=== PATIENT | female | born 1970 | race Caucasian/White ===

== ENCOUNTER → 2020-08-15 | Outpatient (CLI) | payer BC ==
--- NOTE | 2020-08-15 16:23 | REP ---
INDICATION: PAIN. COMPARISON: None. TECHNIQUE: AP and frogleg views bilateral hips. FINDINGS: There is no acute fracture or dislocation. There is moderate joint space narrowing and subchondral sclerosis bilaterally. There is moderate spurring of the left acetabulum and femoral head. Moderately severe hypertrophic spurring is noted of the right acetabulum and femoral head. IMPRESSION: Moderately severe arthritic changes right hip, moderate arthritic changes left hip. <Electronically signed by James Carlos > 08/15/20 [id number]
== END ==
LOC: M WUC 15:10
PROVIDERS: ATTEND Nurse Practitioner
DX: M25.552 Pain in left hip (principal); M25.551 Pain in right hip

== ENCOUNTER → 2020-09-27 | Outpatient (CLI) | payer OTHER ==
[2020-09-27 16:00] LABS: BASO % 0.8 % (0.0-1.0); EOS # 0.1 10^3/uL (0.0-0.5); HEMOGLOBIN 12.8 g/dl (12.0-15.5); LYMPH % 40.5 % (24.0-44.0); MEAN CORPUSCULAR HEMOGLOBIN 30.1 pg (27.0-33.0); MEAN CORPUSCULAR HGB CONC 33.7 g/dl (32.0-36.5); MEAN CORPUSCULAR VOLUME 89.4 fl (80.0-96.0); MONO # 0.3 10^3/uL (0.0-0.8); MONO % 5.4 % (2.0-8.0); NEUTROPHILS # 2.6 10^3/uL (1.5-8.5); NEUTROPHILS % 52.1 % (36.0-66.0); PLATELET COUNT, AUTOMATED 196 10^3/uL (150-450); RED BLOOD COUNT 4.25 10^6/uL (4.00-5.40)
[2020-09-27 16:26] LABS: ERYTHROCYTE SEDIMENTATION RATE 25 mm/hr (0-30)
[2020-09-27 16:49] LABS: C REACTIVE PROTEIN QUANTITATIV 0.72 MG/DL (0.00-0.30); RHEUMATOID FACTOR QUANT < 10.0 IU/ML (<15.0)
== END ==
LOC: M WUC 13:23
PROVIDERS: ATTEND Orthopaedic Surgery
DX: M16.11 Unilateral primary osteoarthritis, right hip (principal)

== ENCOUNTER → 2020-10-02 | Outpatient (CLI) | payer OTHER ==
--- NOTE | 2020-10-02 11:48 | REP ---
INDICATION: R10.30 LOWER ABD PAIN,N92.6 IRREGULAR MENSTRUATION COMPARISON: None. TECHNIQUE: Transabdominal pelvic ultrasound followed by transvaginal examination for better evaluation of the endometrium and adnexa with color Doppler evaluation of the ovaries. FINDINGS: Bladder is unremarkable and measures 16.4 x 7.4 x 9.2 cm. Normal anteverted uterus measures 11.0 x 5.0 x 6.3 cm. The endometrial complex measures 15 mm thickness. No discrete uterine or endometrial abnormalities are appreciated. Bilateral ovaries are not visualized due to technical factors. No pelvic fluid or adnexal mass lesion. IMPRESSION: Normal appearing uterus. Ovaries not visualized. <Electronically signed by Jarod Mims > 10/02/20 [id number]
--- NOTE | 2020-10-02 11:50 | REP ---
INDICATION: Z12.31 SCREENING MAMMO. COMPARISON: None. Patient states her last mammogram was "about 8 years ago" and as per history the patient cannot remember where she had her prior mammogram in [place]. TECHNIQUE: Initial digital screening mammogram was carried out in the CC and MLO projections using both 2D and 3D modalities. By history, the patient has no complaints of a palpable breast abnormality or other significant breast complaints. FINDINGS: The breasts are symmetric in size and shape. There are no masses. There is no internal architectural distortion. There are no suspicious micro calcific clusters. There is no skin thickening or nipple retraction. Benign calcifications are seen in the right breast. In the upper outer quadrant of the right breast there is a nodular density with a notched lucent center. The Volpara volumetric breast density pattern is b. IMPRESSION: BIRADS/ACR category 2 negative mammogram. There is no evidence of malignant alteration of the breasts. There is benign right breast intramammary lymph node. This patient's Tyrer-Cuzick lifetime breast cancer risk assessment score is 19.4%. This mammogram was interpreted with the aid of an FDA-approved computer-aided detection system. The patient states she had a clinical breast exam in July 2020. The patient letter being requested is M1. RECOMMENDATION: Repeat screening mammography recommended 1 year (for women over 40). <Electronically signed by Tucker Chase > 10/02/20 [id number]
== END ==
LOC: M WHC 10:01
PROVIDERS: ATTEND Nurse Practitioner
DX: Z12.31 Encounter for screening mammogram for malignant neoplasm of breast (principal); R10.30 Lower abdominal pain, unspecified; N92.6 Irregular menstruation, unspecified

== ENCOUNTER → 2020-10-17 | Outpatient (CLI) | payer OTHER ==
--- NOTE | 2020-10-17 21:44 | REPVR ---
PROCEDURE INFORMATION: Exam: MR Lumbar Spine Without Contrast Exam date and time: 10/17/2020 8:42 PM Age: 50 years old Clinical indication: Low back pain; Patient HX: Lbp TECHNIQUE: Imaging protocol: Multiplanar magnetic resonance images of the lumbar spine without intravenous contrast. COMPARISON: PELVIS NON-OB COMPLETE US 10/02/2020 10:18 AM FINDINGS: Vertebrae: The lumbar vertebral bodies are normal in height, without abnormal subluxation or acute marrow edema. Spinal cord: The distal end of the conus medullaris ends at L1, normal in position. Multilevel findings: Degenerative disc disease is noted at multiple lumbar and lower thoracic levels, with a decrease in the T2 signal intensity of the discs as well as disc bulge/osteophyte complexes. A decrease in disc height is identified from T10-11 through T12-L1. Lower thoracic spine: Mild spinal canal stenosis at T10-11 with minimal spinal canal stenosis at T11-12. Suggested bilateral neural foraminal narrowing at T10-11, although this is incompletely evaluated. L1-L2: There is no significant narrowing of the thecal sac or neural foramina. Minimal disc bulging. L2-L3: Bilateral facet arthropathy. Minimal disc bulging. There is no significant narrowing of the thecal sac or neural foramina. L3-L4: Bilateral facet arthropathy. There is no significant narrowing of the thecal sac or neural foramina. L4-L5: Bilateral facet arthropathy with hypertrophy of the ligamentum flavum. A small broad-based disc bulge is visualized with flattening of the ventral border of the thecal sac without significant spinal canal stenosis. Mild left neural foraminal narrowing. No significant narrowing of the right neural foramen. L5-S1: Bilateral facet arthropathy. Mild disc bulging causing effacement of the anterior epidural fat, without significant spinal canal stenosis. There is slight narrowing of the left neural foramen. No significant narrowing of the right neural foramen. Soft tissues: No significant paraspinal swelling. IMPRESSION: 1. Degenerative changes are noted at multiple lumbar and lower thoracic levels, as described above. 2. Mild spinal canal stenosis at T10-11 with minimal spinal canal stenosis at T11-12. Suggested bilateral neural foraminal narrowing at T10-11. 3. No significant spinal canal stenosis at any lumbar level. 4. Neural foraminal narrowing at L4-L5 and L5-S1. Electronically signed by: Oscar Clemente On 10/17/2020 21:43:42 PM
== END ==
LOC: M RAD 18:01
PROVIDERS: ATTEND Orthopaedic Surgery
DX: M54.5 Low back pain (principal)

== ENCOUNTER → 2022-12-20 | Outpatient (CLI) | payer OTHER, BC ==
[2022-12-20 13:46] LABS: HEMATOCRIT 37.1 % (36.0-47.0); HEMOGLOBIN 11.8 g/dl (12.0-15.5); MEAN CORPUSCULAR HEMOGLOBIN 28.6 pg (27.0-33.0); MEAN CORPUSCULAR HGB CONC 31.8 g/dl (32.0-36.5); MEAN CORPUSCULAR VOLUME 89.8 fl (80.0-96.0); PLATELET COUNT, AUTOMATED 187 10^3/uL (150-450); RED BLOOD COUNT 4.13 10^6/uL (4.00-5.40); WHITE BLOOD COUNT 5.3 10^3/uL (4.0-10.0)
[2022-12-20 13:49] LABS: APPEARANCE, URINE HAZY (CLEAR); BACTERIA, URINE AUTO NEGATIVE (NEGATIVE); BILIRUBIN, URINE AUTO NEGATIVE (NEGATIVE); BLOOD, URINE BLOOD NEGATIVE (NEGATIVE); COLOR, URINE YELLOW (YELLOW); GLUCOSE, URINE (UA) AUTO NEGATIVE (NEGATIVE); KETONE, URINE AUTO NEGATIVE (NEGATIVE); LEUKOCYTE ESTERASE, URINE AUTO NEGATIVE (NEGATIVE); MUCUS, URINE SMALL (NEGATIVE); NITRITE, URINE AUTO NEGATIVE (NEGATIVE); PROTEIN, URINE AUTO NEGATIVE (NEGATIVE); RBC, URINE AUTO 1 /HPF (0-3); SPECIFIC GRAVITY URINE AUTO 1.013 (1.002-1.035); SQUAMOUS EPITHELIAL CELL UR AU 4 /HPF (0-6); UROBILINOGEN, URINE AUTO 0.2 mg/dL (0.0-2.0); WBC, URINE AUTO 1 /HPF (0-3)
[2022-12-20 13:50] LABS: ALBUMIN 3.4 G/DL (3.2-5.2); ALKALINE PHOSPHATASE 68 U/L (46-116); ALT/SGPT 19 U/L (7.0-40); AST/SGOT 12 U/L (<34); BILIRUBIN,TOTAL 0.5 MG/DL (0.3-1.2); BLOOD UREA NITROGEN 15 MG/DL (9-23); CALCIUM LEVEL 8.5 MG/DL (8.5-10.1); CARBON DIOXIDE LEVEL 29 MMOL/L (20-31); CHLORIDE LEVEL 104 MMOL/L (98-107); CREATININE FOR GFR 0.86 MG/DL (0.55-1.30); GLOMERULAR FILTRATION RATE > 60.0 (>51); GLUCOSE, FASTING 97 MG/DL (60-100); POTASSIUM SERUM 4.6 MMOL/L (3.5-5.1); SODIUM LEVEL 141 MMOL/L (136-145); TOTAL PROTEIN 6.4 G/DL (5.7-8.2)
[2022-12-20 14:10] LABS: MAU/CREAT RATIO 3.3 MCG/MG (0.0-30.0)
== END ==
LOC: M WUC 09:03
PROVIDERS: ATTEND Family Medicine
DX: I10 Essential (primary) hypertension (principal)

== ENCOUNTER → 2023-07-26 | Outpatient (CLI) | payer BC ==
[2023-07-26 10:22] LABS: BASO # 0.1 10^3/uL (0.0-0.2); BASO % 0.7 % (0.0-1.0); EOS # 0.1 10^3/uL (0.0-0.5); HEMATOCRIT 40.6 % (36.0-47.0); HEMOGLOBIN 13.8 g/dl (12.0-15.5); LYMPH # 2.4 10^3/uL (1.5-5.0); LYMPH % 34.5 % (24.0-44.0); MEAN CORPUSCULAR HEMOGLOBIN 30.2 pg (27.0-33.0); MEAN CORPUSCULAR VOLUME 88.8 fl (80.0-96.0); MONO # 0.4 10^3/uL (0.0-0.8); MONO % 5.8 % (2.0-8.0); NEUTROPHILS # 3.9 10^3/uL (1.5-8.5); NEUTROPHILS % 57.6 % (36.0-66.0); PLATELET COUNT, AUTOMATED 244 10^3/uL (150-450); RED BLOOD COUNT 4.57 10^6/uL (4.00-5.40); WHITE BLOOD COUNT 6.9 10^3/uL (4.0-10.0)
[2023-07-26 10:37] LABS: INR 0.93; PARTIAL THROMBOPLASTIN TIME 30.4 SECONDS (24.8-34.2); PROTHROMBIN TIME 12.2 SECONDS (12.5-14.5)
[2023-07-26 10:41] LABS: PERCENT SATURATION 16.6 % (13.2-45.0)
== END ==
LOC: M LAB 08:27
PROVIDERS: ATTEND Orthopaedic Surgery
DX: Z01.818 Encounter for other preprocedural examination (principal); M25.552 Pain in left hip; M16.12 Unilateral primary osteoarthritis, left hip

== ENCOUNTER → 2023-10-24 | Outpatient (CLI) | payer BC ==
[2023-10-24 13:27] LABS: BASO # 0.1 10^3/uL (0.0-0.2); BASO % 1.3 % (0.0-1.0); EOS # 0.1 10^3/uL (0.0-0.5); EOS % 1.7 % (0.0-3.0); HEMATOCRIT 37.3 % (36.0-47.0); HEMOGLOBIN 11.9 g/dl (12.0-15.5); LYMPH # 2.1 10^3/uL (1.5-5.0); LYMPH % 38.6 % (24.0-44.0); MEAN CORPUSCULAR HEMOGLOBIN 28.6 pg (27.0-33.0); MEAN CORPUSCULAR HGB CONC 31.9 g/dl (32.0-36.5); MEAN CORPUSCULAR VOLUME 89.7 fl (80.0-96.0); MONO # 0.4 10^3/uL (0.0-0.8); MONO % 7.4 % (2.0-8.0); NEUTROPHILS # 2.7 10^3/uL (1.5-8.5); NEUTROPHILS % 50.8 % (36.0-66.0); PLATELET COUNT, AUTOMATED 196 10^3/uL (150-450); RED BLOOD COUNT 4.16 10^6/uL (4.00-5.40); WHITE BLOOD COUNT 5.4 10^3/uL (4.0-10.0)
[2023-10-24 13:43] LABS: ALBUMIN 3.7 G/DL (3.2-5.2)
[2023-10-24 13:50] LABS: PERCENT SATURATION 12.6 % (13.2-45.0)
[2023-10-24 13:52] LABS: FERRITIN 20.2 NG/ML (7.3-270.7)
== END ==
LOC: M WUC 09:40
PROVIDERS: ATTEND Orthopaedic Surgery
DX: Z01.812 Encounter for preprocedural laboratory examination (principal); M25.559 Pain in unspecified hip; M16.9 Osteoarthritis of hip, unspecified; D63.8 Anemia in other chronic diseases classified elsewhere

== ENCOUNTER → 2025-01-13 | Outpatient (CLI) | payer BC ==
[2025-01-13 14:32] LABS: APPEARANCE, URINE HAZY (CLEAR); BACTERIA, URINE AUTO NEGATIVE (NEGATIVE); BILIRUBIN, URINE AUTO NEGATIVE (NEGATIVE); BLOOD, URINE BLOOD NEGATIVE (NEGATIVE); GLUCOSE, URINE (UA) AUTO NEGATIVE (NEGATIVE); KETONE, URINE AUTO NEGATIVE (NEGATIVE); LEUKOCYTE ESTERASE, URINE AUTO NEGATIVE (NEGATIVE); NITRITE, URINE AUTO NEGATIVE (NEGATIVE); PROTEIN, URINE AUTO NEGATIVE (NEGATIVE); RBC, URINE AUTO 0 /HPF (0-3); SPECIFIC GRAVITY URINE AUTO 1.008 (1.002-1.035); SQUAMOUS EPITHELIAL CELL UR AU 8 /HPF (0-6); UROBILINOGEN, URINE AUTO 0.2 mg/dL (0.0-2.0); WBC, URINE AUTO 0 /HPF (0-3)
[2025-01-13 14:40] LABS: ALT/SGPT 33.0 U/L (7.0-40); AST/SGOT 30.0 U/L (<34); CALCIUM LEVEL 9.3 MG/DL (8.5-10.1); CARBON DIOXIDE LEVEL 29.0 MMOL/L (20-31); CHLORIDE LEVEL 101.0 MMOL/L (98-107); CREATININE FOR GFR 0.86 MG/DL (0.55-1.30); GLOMERULAR FILTRATION RATE 79.7 (>51); POTASSIUM SERUM 3.9 MMOL/L (3.5-5.1); SODIUM LEVEL 137.0 MMOL/L (136-145)
[2025-01-13 14:41] LABS: PLATELET COUNT, AUTOMATED 180 10^3/uL (150-450)
== END ==
LOC: M WUC 08:11
PROVIDERS: ATTEND Family Medicine
DX: I10 Essential (primary) hypertension (principal); R53.83 Other fatigue; M79.7 Fibromyalgia